=== PATIENT | male | born 1945 | race Caucasian/White ===

== ENCOUNTER → 2016-12-18 | Outpatient (CLI) | payer OTHER, BC ==
[~2016-12-18] MED LIST: ASPI81TA28 PO; C PAP; CMD5 PO; ENOX60IN SQ.; MULT-506 PO; OPTIRAY 320 IV PRN; PRT40 PO; SIMV40TA2 PO
--- NOTE | 2016-12-18 09:59 | DIAGNOSTIC IMAGING REPORT ---
CT OF THE CHEST WITH IV CONTRAST CLINICAL HISTORY: Adenopathy COMPARISON STUDY: CT scan dated 02/16/2014 TECHNIQUE: Following the IV administration of 93 mL of Optiray-320, CT of the thorax was performed from the thoracic inlet to the lung bases. Images are reviewed in the axial, sagittal, and coronal planes. IV contrast was administered without complication. A dose lowering technique was utilized adhering to the principles of ALARA. CT DOSE: 570.06 mGy.cm FINDINGS: Thyroid: Imaged portions of the thyroid gland are normal in appearance. Thoracic aorta: The thoracic aorta is normal in course and caliber, noting standard 3-vessel arch anatomy. No aneurysm or dissection is seen. Pulmonary vasculature: The pulmonary trunk is normal in caliber. There are no central filling defects identified to suggest pulmonary embolus. Note that this examination was not protocoled for the evaluation of pulmonary emboli. HEART: The heart is normal in size and configuration, without pericardial effusion. Lungs and pleural spaces: There are no pleural effusions. There is no focal pulmonary consolidation. There are mild dependent atelectatic changes. There is a 6 mm pleural-based solid right middle lobe pulmonary nodule as visualized in image #[id number]. This measured 5 mm in February 2014. There is a calcified granuloma within the right lung apex, and right lower lobe. There is a solid 4 mm pleural-based right lower lobe pulmonary nodule as visualized on image #194/302. This measures 3 mm in February 2014. There is a solid 7 mm pleural-based left lower lobe pulmonary nodule as visualized in image #175/302. This measures 6 mm in February 2014. There is a 6 mm solid pleural-based left lower lobe pulmonary nodule as visualized in image #[id number]/302. This nodule measured 4 mm in February 2014. Mediastinum: There are calcified subcarinal lymph nodes, likely postinflammatory. Kriss: There are calcified right hilar lymph nodes, likely postinflammatory Axilla: There is no evidence of pathologic axillary lymphadenopathy Upper abdomen: There is an 11 mm upper pole left renal hypodensity. Although slightly exceeding water attenuation, this statistically represents a cyst. Skeletal structures: There are no lytic or blastic osseous lesions. IMPRESSION: 1. Calcified right lung granulomas 2. Calcified mediastinal and hilar lymph nodes, most consistent with prior granulomatous infectious disease 3. Multiple bilateral low suspicion subcentimeter pulmonary nodules, demonstrating only minimal interval growth when compared the prior February 2014 study. The very slow growth strongly favors a benign etiology Electronically signed by: Veto Amaral M.D. 12/18/2016 9:58 AM Dictated Date/Time: 12/18/2016 9:43 AM
== END | disposition home or self-care (01) ==
LOC: C.CTS 09:15
PROVIDERS: ATTEND Internal Medicine
DX: I89.8 Other specified noninfective disorders of lymphatic vessels and lymph nodes (principal)

== ENCOUNTER 2017-03-25 13:42 | Inpatient (IN) | payer OTHER, BC ==
[~2017-03-25] VITALS: Ht 172.7 cm; Wt 81.0 kg
[~2017-03-25 13:42] MED LIST changes: -OPTIRAY 320 IV PRN
[2017-03-25] MEDS ORDERED: DILTIAZEM BOLUS / DRIP IV STA ×2 (14:11→15:51)
[2017-03-25] MEDS ORDERED: SODIUM CHLORIDE 0.9% 1000ML 500 ML IV STA (14:11)
--- NOTE | 2017-03-25 14:21 | EMERGENCY ROOM VISIT NOTE ---
History Report prepared by Gian: Payam Garcia Under the Supervision of: Dr. Tyshawn Power M.D. First contact with patient: 14:09 Chief Complaint: CARDIAC ASSESSMENT Stated Complaint: A FIB DR REFERRED Nursing Triage Summary: Fatigue and Dyspnea since before . Seen by PCP, new onset of A-fib with RVR. denies chest pain. pt reports lightheadedness. hx of back injury and Prednisone use. Hx of PE History of Present Illness The patient is a 71 year old male who presents to the Emergency Room with complaints of persistent fatigue and shortness of breath for the past three weeks. He states that he went to his PCP prior to arrival, and he had a new onset A-fib, and he states that he has no history of A-fib or A-flutter, and he did not even notice his heart beating fast. He denies any chest pain, cough, congestion, other cold symptoms, and any history of thyroid problems. The patient has a history of a PE in 2013, and he is not currently on any blood thinners. He notes that he has been eating and drinking normally recently. Source of History: patient Onset: three weeks ago Position: other (global) Quality: other (shortness of breath and fatigued) Timing: other (persistent) Associated Symptoms: No cough, No chest pain Review of Systems See HPI for pertinent positives & negatives. A total of 10 systems reviewed and were otherwise negative. Past Medical & Surgical Medical Problems: (1) Factor V Leiden mutation (2) HLD (hyperlipidemia) (3) HTN (hypertension) (4) Hx of pulmonary embolus (5) MTHFR mutation Family History Cancer Diabetes mellitus Social History Smoking Status: Never Smoker Alcohol Use: occasionally Marital Status: single Housing Status: lives with family Occupation Status: unemployed Current/Historical Medications Scheduled Amlodipine (Norvasc), 5 MG PO DAILY Aspirin (Aspirin Ec), 81 MG PO HS Atorvastatin (Lipitor), 20 MG PO DAILY Ibuprofen (Advil), 400 MG PO Q6H Losartan Potassium (Cozaar), 100 MG PO DAILY Allergies Coded Allergies: No Known Allergies (Unverified , 03/25/17) Physical Exam Vital Signs Date Time Temp Pulse Resp B/P (MAP) Pulse Ox O2 Delivery O2 Flow Rate FiO2 03/25/17 15:42 92 26 94 03/25/17 15:31 132/81 03/25/17 15:21 112/64 03/25/17 15:21 106 18 112/64 96 Room Air 03/25/17 15:12 88 19 92 03/25/17 15:05 118 18 104/72 96 Room Air 03/25/17 15:04 104/72 03/25/17 14:42 98 10 94 03/25/17 14:20 162 03/25/17 13:55 96 Room Air 03/25/17 13:51 36.4 102 18 139/80 96 Room Air Physical Exam GENERAL: Patient is in no acute distress. HEENT: No acute trauma, normocephalic atraumatic, mucous membranes moist, no nasal congestion, no scleral icterus. NECK: No stridor, no adenopathy, no meningismus, trachea is midline. LUNGS: Clear to auscultation bilaterally, no wheeze, no rhonchi, breath sounds equal. HEART: Irregular with a mild tachycardia. No murmurs. ABDOMEN: Soft, nontender, bowel sounds positive, no hernias, no peritonitis. EXTREMITIES: No cyanosis or edema, full range of motion of all the joints without pain or difficulty, no signs for acute trauma. NEUROLOGIC: Oriented x 3, no acute motor or sensory deficits, no focal weakness. SKIN: No rash, no jaundice, no diaphoresis. Medical Decision & Procedures ER Provider Diagnostic Interpretation: Radiology results as stated below per my review and radiologist interpretation: CHEST ONE VIEW PORTABLE HISTORY: EVALUATE ALTERED MENTAL STATUS/WEAKNESS COMPARISON: Chest 02/16/2014. FINDINGS: The heart is normal in size. No pleural effusions. No pneumothorax. No evidence for pulmonary edema. The right lung is essentially clear. There is asymmetric interstitial thickening at the left lung base. No new focal lung consolidations. IMPRESSION: Nonspecific interstitial thickening at the left lung base. This could be chronic or due to an atypical pneumonitis. Clinical correlation recommended. Electronically signed by: Ender Martinez M.D. 03/25/2017 2:33 PM Dictated Date/Time: 03/25/2017 2:30 PM Laboratory Results 03/25/17 14:05 Red Blood Count 4.93, Mean Corpuscular Volume 89.2, Mean Corpuscular Hemoglobin 30.8, Mean Corpuscular Hemoglobin Concent 34.5, Mean Platelet Volume 9.4, Neutrophils (%) (Auto) 55.6, Lymphocytes (%) (Auto) 22.6, Monocytes (%) (Auto) 16.0, Eosinophils (%) (Auto) 4.7, Basophils (%) (Auto) 0.8, Neutrophils # (Auto ) 3.70, Lymphocytes # (Auto) 1.50, Monocytes # (Auto) 1.06, Eosinophils # (Auto ) 0.31, Basophils # (Auto) 0.05 03/25/17 14:05 Test 03/25/17 14:05 White Blood Count 6.64 K/uL (4.8-10.8) Red Blood Count 4.93 M/uL (4.7-6.1) Hemoglobin 15.2 g/dL (14.0-18.0) Hematocrit 44.0 % (42-52) Mean Corpuscular Volume 89.2 fL (80-100) Mean Corpuscular Hemoglobin 30.8 pg (25-34) Mean Corpuscular Hemoglobin Concent 34.5 g/dl (32-36) Platelet Count 230 K/uL (130-400) Mean Platelet Volume 9.4 fL (7.4-10.4) Neutrophils (%) (Auto) 55.6 % Lymphocytes (%) (Auto) 22.6 % Monocytes (%) (Auto) 16.0 % Eosinophils (%) (Auto) 4.7 % Basophils (%) (Auto) 0.8 % Neutrophils # (Auto) 3.70 K/uL (1.4-6.5) Lymphocytes # (Auto) 1.50 K/uL (1.2-3.4) Monocytes # (Auto) 1.06 K/uL (0.11-0.59) Eosinophils # (Auto) 0.31 K/uL (0-0.5) Basophils # (Auto) 0.05 K/uL (0-0.2) RDW Standard Deviation 45.6 fL (36.4-46.3) RDW Coefficient of Variation 13.9 % (11.5-14.5) Immature Granulocyte % (Auto) 0.3 % Immature Granulocyte # (Auto) 0.02 K/uL (0.00-0.02) Prothrombin Time 9.9 SECONDS (9.0-12.0) Prothromb Time International Ratio 0.9 (0.9-1.1) Activated Partial Thromboplast Time 26.2 SECONDS (21.0-31.0) Partial Thromboplastin Ratio 1.0 Anion Gap 9.0 mmol/L (3-11) Est Creatinine Clear Calc Drug Dose 70.9 ml/min Estimated GFR () 85.5 Estimated GFR (Non- 73.8 BUN/Creatinine Ratio 18.2 (10-20) Calcium Level 9.6 mg/dl (8.5-10.1) Total Bilirubin 0.8 mg/dl (0.2-1) Aspartate Amino Transf (AST/SGOT) 27 U/L (15-37) Alanine Aminotransferase (ALT/SGPT) 51 U/L (12-78) Alkaline Phosphatase 79 U/L (45-117) Total Creatine Kinase 67 U/L (39-308) Creatine Kinase MB 0.6 ng/ml (0.5-3.6) Creatine Kinase MB Ratio 0.9 (0-3.0) Troponin I < 0.015 ng/ml (0-0.045) Total Protein 8.3 gm/dl (6.4-8.2) Albumin 3.7 gm/dl (3.4-5.0) Globulin 4.6 gm/dl (2.5-4.0) Albumin/Globulin Ratio 0.8 (0.9-2) Thyroid Stimulating Hormone (TSH) 1.940 uIu/ml (0.300-4.500) Laboratory results reviewed by me. Medications Administered Medications (Trade) Dose Ordered Sig/Hortensia Route Start Time Stop Time Status Last Admin Dose Admin Sodium Chloride 500 ml @ 999 mls/hr Q31M STAT IV 03/25/17 14:11 03/25/17 14:41 DC 03/25/17 15:09 999 MLS/HR Diltiazem HCl (Cardizem Bolus From Bag) 10 mg NOW ONCE IV 03/25/17 14:30 03/25/17 14:31 DC 03/25/17 15:10 10 MG Diltiazem HCl 125 mg/Dextrose 125 ml @ 0 mls/hr Q0M PRN IV 03/25/17 14:30 04/24/17 14:29 03/25/17 17:32 5 MLS/HR ECG Indication: SOB/dyspnea Rate (beats per minute): 126 Rhythm: atrial fibrillation (Rapid) Findings: no acute ischemic change, no ectopy Change: EKG has been interpreted by me. ED Course 1409: The patient was evaluated in room C1. A complete history and physical exam was performed. 1411: Diltiazem HCl IV, Sodium Chloride 500 ml @ 999 mls/hr IV 1430: Diltiazem HCl 125mg/ Dextrose IV, Diltiazem HCl 10mg IV 1502: Upon reexamination the patient is resting comfortably. I discussed results and treatment plan with the patient. He verbalizes agreement and understanding. He will be evaluated for further management. 1506: Discussed the patient's case Saturnino Hackett PA-C. The patient will be evaluated for further management. Medical Decision Differential diagnoses considered include A-fib or A-flutter, electrolyte imbalance, thyroid disorder, PE, pneumonia, and NV. There is no leukocytosis or concerning anemia. No significant electrolyte abnormality, kidney failure or hepatitis. No coagulopathy. The patient appears to be in a euthyroid state. Chest film does not show pneumonia, CHF or pneumothorax. EKG shows a rapid A. fib, no acute ischemia. Cardiac enzyme testing 1 is not consistent with acute cardiac injury. The patient presents in rapid A. fib. He may have been in this rhythm for weeks. He did not appear toxic. The patient was given a bolus of diltiazem and placed on a diltiazem drip. This is going to be used to control the rapid rate. Patient did receive an IV saline bolus. Admission/observation is warranted given our findings. I spoke to the patient and case management. The on-call hospitalist was consulted. Medication Reconcilliation Current Medication List: was personally reviewed by vt Blood Pressure Screening Patient's blood pressure: Elevated blood pressure Monitored by the hospitalist Consults Time Called: 1503 Consulting Physician: Saturnino Hackett PA-C Returned Call: 1506 Discussed the patient's case with Saturnino Hackett PA-C. The patient will be evaluated for further management. Impression Primary Impression: Rapid atrial fibrillation Critical Care I have personally spent greater than 35 minutes of critical care time in the direct management of this patient. This includes bedside care, interpretation of diagnostic studies, and testing, discussion with consultants, patient, and family members, and other required patient management activities. This 35 minutes is in excess of all separately billable procedures. Scribe Attestation The scribe's documentation has been prepared under my direction and personally reviewed by me in its entirety. I confirm that the note above accurately reflects all work, treatment, procedures, and medical decision making performed by me. Departure Information Dispostion Being Evaluated By Hospitalist Jay Jay Ga MD (PCP) Patient Instructions My [facility]
[2017-03-25] MEDS ORDERED: DILTIAZEM BOLUS FROM BAG IV ONE (14:30)
--- NOTE | 2017-03-25 14:34 | DIAGNOSTIC IMAGING REPORT ---
CHEST ONE VIEW PORTABLE HISTORY: EVALUATE ALTERED MENTAL STATUS/WEAKNESS COMPARISON: Chest 02/16/2014. FINDINGS: The heart is normal in size. No pleural effusions. No pneumothorax. No evidence for pulmonary edema. The right lung is essentially clear. There is asymmetric interstitial thickening at the left lung base. No new focal lung consolidations. IMPRESSION: Nonspecific interstitial thickening at the left lung base. This could be chronic or due to an atypical pneumonitis. Clinical correlation recommended. Electronically signed by: Ender Martinez M.D. 03/25/2017 2:33 PM Dictated Date/Time: 03/25/2017 2:30 PM
[2017-03-25 14:45] LABS: BASO % 0.8 %; BASO ABS # 0.05 K/uL (0-0.2); EOS % 4.7 %; EOS ABS # 0.31 K/uL (0-0.5); HEMOGLOBIN 15.2 g/dL (14.0-18.0); IG# 0.02 K/uL (0.00-0.02); LYMPH % 22.6 %; MEAN CELL VOLUME 89.2 fL (80-100); MEAN CORPUSCULAR HEMOGLOBIN 30.8 pg (25-34); MEAN CORPUSCULAR HGB CONC 34.5 g/dl (32-36); MEAN PLATELET VOLUME 9.4 fL (7.4-10.4); MONO ABS # 1.06 K/uL (0.11-0.59); NEUT % 55.6 %; PLATELET COUNT 230 K/uL (130-400); RED CELL DISTRIBUTION WIDTH CV 13.9 % (11.5-14.5); RED CELL DISTRIBUTION WIDTH SD 45.6 fL (36.4-46.3); WHITE BLOOD COUNT 6.64 K/uL (4.8-10.8)
[2017-03-25 14:46] LABS: INR 0.9 (0.9-1.1); PTT PATIENT 26.2 SECONDS (21.0-31.0)
[2017-03-25 14:49] LABS: ALBUMIN 3.7 gm/dl (3.4-5.0); ALT/SGPT 51 U/L (12-78); BLOOD UREA NITROGEN 19 mg/dl (7-18); CALCIUM 9.6 mg/dl (8.5-10.1); CARBON DIOXIDE 24 mmol/L (21-32); CREATININE 1.03 mg/dl (0.60-1.40); GLUCOSE 98 mg/dl (70-99); POTASSIUM 4.1 mmol/L (3.5-5.1); SODIUM 137 mmol/L (136-145)
[2017-03-25 15:00] LABS: ALKALINE PHOSPHATASE 79 U/L (45-117); AST/SGOT 27 U/L (15-37); CKMB 0.6 ng/ml (0.5-3.6); TOTAL PROTEIN 8.3 gm/dl (6.4-8.2)
[2017-03-25] MEDS: DILTIAZEM HCL INJ 125 MG in DEXTROSE 5% 100ML IV PRN ×2 (15:17→17:32)
[2017-03-25] MEDS ORDERED: IBUP-1050 PO (15:54)
[2017-03-25] MEDS ORDERED: ATOR-22 PO (15:54)
[2017-03-25] MEDS ORDERED: LOSA1TAB38 PO (15:54)
[2017-03-25] MEDS ORDERED: AMLO-110 PO (15:54)
[2017-03-25] MEDS ORDERED: ONDANSETRON INJ 2 MG/ML 2 ML VIAL IV PRN (16:00)
[2017-03-25] MEDS ORDERED: OPTIRAY 320 IV PRN (16:00)
[2017-03-25 16:02] VITALS: O2SAT 96; Ht 172.7 cm; Wt 81.0 kg
--- NOTE | 2017-03-25 16:19 | History and Physical ---
History & Physical Date & Time of Service: Mar 25, 2017 at 16:18 Chief Complaint: A Fib Dr Referred Primary Care Physician: Jay Jay Youngblood MD History of Present Illness Source: patient, clinic records, hospital records This is a 71yo M with a PMH of HTN, HLD, WILLOW (on cpap), h/o PE in 2013, Factor V Leiden mutation and diastolic dysfunction who presents with new onset A Fib from PCP's office. Patient has been feeling fatigued and dyspneic with exertion for the past 3 weeks. States that he is SOB with household activities like vacuuming and climbing a flight of stairs. Was found to be in A Fib at Dr. Youngblood's office and was sent to ED for further evaluation. Has a history of a PE in 2013 and was found to have an underlying Factor V leiden mutation. Was on warfarin at that time but is not on any anticoagulation now. Endorses a normal appetite. No recent infection. Drinks 1-2 glasses of wine each week. No history of thyroid problems. Denies fever, chills, lightheadedness, palpitations , CP, abd pain, nausea, vomiting, LE swelling. Past Medical/Surgical History Medical Problems: (1) Factor V Leiden mutation Status: Chronic (2) HLD (hyperlipidemia) Status: Chronic (3) HTN (hypertension) Status: Chronic (4) Hx of pulmonary embolus Permanent Comment: 2013 Status: Chronic (5) MTHFR mutation Status: Chronic Family History Cancer Diabetes mellitus Social History Smoking Status: Never Smoker Alcohol Use: socially (1-2 glasses of wine weekly) Housing status: lives with significant other Occupational Status: unemployed Allergies Coded Allergies: No Known Allergies (Unverified , 03/25/17) Home Medications Scheduled Amlodipine (Norvasc), 5 MG PO DAILY Aspirin (Aspirin Ec), 81 MG PO HS Atorvastatin (Lipitor), 20 MG PO DAILY Ibuprofen (Advil), 400 MG PO Q6H Losartan Potassium (Cozaar), 100 MG PO DAILY Review of Systems Ten systems reviewed and negative except as noted in the HPI. Physical Exam Vital Signs Date Time Temp Pulse Resp B/P (MAP) Pulse Ox O2 Delivery O2 Flow Rate FiO2 03/25/17 16:12 95 25 96 03/25/17 16:02 96 Room Air 03/25/17 16:00 127/82 03/25/17 15:42 92 26 94 03/25/17 15:31 132/81 03/25/17 15:21 112/64 03/25/17 15:21 106 18 112/64 96 Room Air 03/25/17 15:12 88 19 92 03/25/17 15:05 118 18 104/72 96 Room Air 03/25/17 15:04 104/72 03/25/17 14:42 98 10 94 03/25/17 14:20 162 03/25/17 13:55 96 Room Air 03/25/17 13:51 36.4 102 18 139/80 96 Room Air General Appearance: WD/WN, no apparent distress Head: normocephalic, atraumatic Eyes: normal inspection, PERRL, sclerae normal ENT: normal ENT inspection, hearing grossly normal, pharynx normal (moist mucous membranes) Neck: supple, thyroid normal, trachea midline Respiratory/Chest: chest non-tender, lungs clear, normal breath sounds, no respiratory distress, no accessory muscle use Cardiovascular: no murmur, normal peripheral pulses, + irregularly irregular Abdomen/GI: non tender, soft, no organomegaly Back: normal inspection Extremities/Musculoskelatal: normal inspection, no calf tenderness, no pedal edema Neurologic/Psych: no motor/sensory deficits, alert, normal mood/affect, oriented x 3 Skin: normal color, warm/dry Diagnostics Laboratory Results Results Past 24 Hours Test 03/25/17 14:05 Range/Units White Blood Count 6.64 4.8-10.8 K/uL Red Blood Count 4.93 4.7-6.1 M/uL Hemoglobin 15.2 14.0-18.0 g/dL Hematocrit 44.0 42-52 % Mean Corpuscular Volume 89.2 80-100 fL Mean Corpuscular Hemoglobin 30.8 25-34 pg Mean Corpuscular Hemoglobin Concent 34.5 32-36 g/dl Platelet Count 230 130-400 K/uL Mean Platelet Volume 9.4 7.4-10.4 fL Neutrophils (%) (Auto) 55.6 % Lymphocytes (%) (Auto) 22.6 % Monocytes (%) (Auto) 16.0 % Eosinophils (%) (Auto) 4.7 % Basophils (%) (Auto) 0.8 % Neutrophils # (Auto) 3.70 1.4-6.5 K/uL Lymphocytes # (Auto) 1.50 1.2-3.4 K/uL Monocytes # (Auto) 1.06 0.11-0.59 K/uL Eosinophils # (Auto) 0.31 0-0.5 K/uL Basophils # (Auto) 0.05 0-0.2 K/uL RDW Standard Deviation 45.6 36.4-46.3 fL RDW Coefficient of Variation 13.9 11.5-14.5 % Immature Granulocyte % (Auto) 0.3 % Immature Granulocyte # (Auto) 0.02 0.00-0.02 K/uL Prothrombin Time 9.9 9.0-12.0 SECONDS Prothromb Time International Ratio 0.9 0.9-1.1 Activated Partial Thromboplast Time 26.2 21.0-31.0 SECONDS Partial Thromboplastin Ratio 1.0 Sodium Level 137 136-145 mmol/L Potassium Level 4.1 3.5-5.1 mmol/L Chloride Level 104 98-107 mmol/L Carbon Dioxide Level 24 21-32 mmol/L Anion Gap 9.0 3-11 mmol/L Blood Urea Nitrogen 19 7-18 mg/dl Creatinine 1.03 0.60-1.40 mg/dl Est Creatinine Clear Calc Drug Dose 70.9 ml/min Estimated GFR () 85.5 Estimated GFR (Non- 73.8 BUN/Creatinine Ratio 18.2 10-20 Random Glucose 98 70-99 mg/dl Calcium Level 9.6 8.5-10.1 mg/dl Total Bilirubin 0.8 0.2-1 mg/dl Aspartate Amino Transf (AST/SGOT) 27 15-37 U/L Alanine Aminotransferase (ALT/SGPT) 51 12-78 U/L Alkaline Phosphatase 79 45-117 U/L Total Creatine Kinase 67 39-308 U/L Creatine Kinase MB 0.6 0.5-3.6 ng/ml Creatine Kinase MB Ratio 0.9 0-3.0 Troponin I < 0.015 0-0.045 ng/ml Total Protein 8.3 6.4-8.2 gm/dl Albumin 3.7 3.4-5.0 gm/dl Globulin 4.6 2.5-4.0 gm/dl Albumin/Globulin Ratio 0.8 0.9-2 Thyroid Stimulating Hormone (TSH) 1.940 0.300-4.500 uIu/ml Diagnostic Radiology Chest/thorax CTA: IMPRESSION: 1. No evidence for pulmonary embolus. 2. Scattered subcentimeter pulmonary nodules are again noted and not significantly changed. Dominant nodule within the left lower lobe measures 8 mm. No new pulmonary nodules. 3. Groundglass densities within the right upper lobe and within the periphery of the lung bases. This could be due to air trapping, dependent change, or an atypical pneumonitis. CXR: IMPRESSION: Nonspecific interstitial thickening at the left lung base. This could be chronic or due to an atypical pneumonitis. Clinical correlation recommended. EKG A Fib with RVR at 126 bpm Impression Assessment and Plan This is a 71yo M with a PMH of HTN, HLD, WILLOW (on cpap), h/o PE in 2013, Factor V Leiden mutation and diastolic dysfunction who presents with new onset A Fib from PCP's office. New onset A Fib with RVR: -Unclear etiology -TSH, electrolytes wnl -Chest/thorax CTA without evidence of PE. Possible pneumonitis -HR of 162 on admission, down to 110s on diltiazem drip -Plan to continue drip until HR ~ 90 -IV heparin initiated -Cardio consulted -Telemetry HTN: -Normotensive on losartan hold Amlodipine, while on diltiazem drip HLD: -Cont statin WILLOW: -Will use own CPAP DVT Ppx: IV heparin Code status: FULL PCP: Rylie Dispo: Admitted to telemetry. Plan to return home once medically stable. Patient seen in collaboration with Dr. Moon. Please see addendum. Agree with above H and p. Briefly 71Y M presents feeling of severe fatigue for stime now. Having sob with exertion. No chest pain or dizziness or headaches. No fevers. No cough. Went to PCP and was found in rapid afib and was sent to ER. Rates are better controlled with Cardizem drip. 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 Y/N: Yes Risk Level: High Given or contraindicated: Unfractionated heparin SQ
[2017-03-25] MEDS ORDERED: HEPARIN 25000 UNIT/500 ML D5W ONE (16:28)
[2017-03-25 17:20] VITALS: O2SAT 96
--- NOTE | 2017-03-25 17:36 | DIAGNOSTIC IMAGING REPORT ---
CHEST CTA for PULMONARY ARTERIES CT DOSE: 338.43 mGy.cm HISTORY: Atypical chest pain. TECHNIQUE: Multiaxial CT images of the chest were performed following the intravenous administration of contrast to evaluate the pulmonary arteries. Maximal intensity projection images were also obtained. A dose lowering technique was utilized adhering to the principles of ALARA. COMPARISON STUDY: Chest CT 12/18/2016. Chest CTA 02/16/2014. FINDINGS: Normal caliber thoracic aorta with no evidence for dissection. No pleural or pericardial effusions. The heart is enlarged. Suboptimal evaluation of the bilateral lower lobe subsegmental pulmonary arteries due to the motion artifact. Otherwise, the remaining pulmonary arteries show no filling defects to suggest pulmonary embolus. The central airways are patent. No pneumothorax. A few scattered subcentimeter pulmonary nodules are stable in size. Dominant nodule within the left lower lobe on image 131 measures 8 mm. No new pulmonary nodules are identified. Patchy groundglass densities seen within the right upper lobe and periphery of the lung bases. The visualized liver, spleen, and adrenal glands are unremarkable. Small hiatus hernia. No mediastinal or hilar lymphadenopathy. Calcified right hilar and subcarinal lymph nodes. IMPRESSION: 1. No evidence for pulmonary embolus. 2. Scattered subcentimeter pulmonary nodules are again noted and not significantly changed. Dominant nodule within the left lower lobe measures 8 mm. No new pulmonary nodules. 3. Groundglass densities within the right upper lobe and within the periphery of the lung bases. This could be due to air trapping, dependent change, or an atypical pneumonitis. Electronically signed by: Ender Martinez M.D. 03/25/2017 5:35 PM Dictated Date/Time: 03/25/2017 5:24 PM
[2017-03-25 17:43] VITALS: BP 126/82; PULSE 84; TEMP 36.5
[2017-03-25] MEDS ORDERED: HEPARIN 25,000 UNIT/500ML D5W 500 ML IV PRN (18:00)
[2017-03-25 18:15] VITALS: PULSE 110
[2017-03-25] MEDS ORDERED: METOPROLOL TARTRATE 25 MG TAB PO ONE (18:59)
[2017-03-25 19:47] VITALS: BP 133/78; PULSE 86; TEMP 36.6; O2SAT 92
[2017-03-25] MEDS ORDERED: ASPIRIN 81 MG ECTAB PO SCH (21:00)
[2017-03-25] MEDS ORDERED: [UNRECOGNIZED DRUG - REMARK] ONE (23:00)
[2017-03-25 23:22] LABS: PTT PATIENT 45.4 SECONDS (21.0-31.0)
[2017-03-25 23:29] VITALS: BP 130/72; PULSE 77; TEMP 37.3; O2SAT 96
[2017-03-25] MEDS: ACETAMINOPHEN 325 MG TAB PO PRN (23:35)
[2017-03-25] MEDS: METOPROLOL TARTRATE 25 MG TAB PO SCH (23:36)
[2017-03-26] MEDS ORDERED: HEPARIN IV BOLUS 3,000 UNIT in SYRINGE 0 ML IV ONE (00:30)
[2017-03-26 04:00] VITALS: BP 107/65; PULSE 71; TEMP 36.7; O2SAT 96
[2017-03-26] MEDS: METOPROLOL TARTRATE 25 MG TAB PO SCH ×2 (05:53→11:46)
[2017-03-26 06:40] LABS: HEMATOCRIT 38.9 % (42-52); HEMOGLOBIN 13.3 g/dL (14.0-18.0); MEAN CORPUSCULAR HEMOGLOBIN 30.4 pg (25-34); MEAN CORPUSCULAR HGB CONC 34.2 g/dl (32-36); MEAN PLATELET VOLUME 8.8 fL (7.4-10.4); PLATELET COUNT 180 K/uL (130-400); RED CELL DISTRIBUTION WIDTH CV 13.8 % (11.5-14.5); RED CELL DISTRIBUTION WIDTH SD 45.2 fL (36.4-46.3); WHITE BLOOD COUNT 5.74 K/uL (4.8-10.8)
[2017-03-26 07:09] LABS: PTT PATIENT 113.9 SECONDS (21.0-31.0)
[2017-03-26 07:11] LABS: CALCIUM 8.5 mg/dl (8.5-10.1); CREATININE 1.06 mg/dl (0.60-1.40); POTASSIUM 4.3 mmol/L (3.5-5.1)
[2017-03-26 07:30] VITALS: BP 124/74; PULSE 71; TEMP 37.3; O2SAT 93
--- NOTE | 2017-03-26 07:58 | CARDIOLOGY CONSULTATION ---
DATE OF CONSULTATION: 03/25/2017 PRIMARY CARE PHYSICIAN: Dr. Youngblood. INDICATIONS: Atrial fibrillation/atrial flutter with rapid ventricular response. HISTORY OF PRESENT ILLNESS: The patient is a 71-year-old male without prior history of atrial arrhythmias. His underlying medical history is notable for hypertension, obstructive sleep apnea, hyperlipidemia, on therapy, past history of pulmonary embolus in 2013, the patient having notable heterozygous factor V Leiden factor. The patient presents now noting he had been doing well but suffered a mechanical fall in February, then began experiencing severe hip pain and discomfort. He was treated with analgesia and corticosteroids. Notes now over the last 3 weeks generally progressive symptoms of weakness and fatigue. Notes no sense of tachypalpitations but is currently unaware of palpitations during elevated heart rates. Notes no chest pains. Notes no orthopnea. Notes no worsening peripheral edema. Notes no headache or visual changes. Has been using CPAP faithfully. Notes no recent fevers, chills or infections. Notes no bleeding difficulties. Notes no melena, hematochezia, dysuria or hematuria. The patient was treated for pulmonary embolus in 2013 for 6 months with anticoagulation with warfarin. Episode was not specifically provoked but noted multiple car trips in the preceding months of over 6 hours' duration, back and forth between [place] and [place]. REVIEW OF SYSTEMS: Otherwise negative. ALLERGIES: None. MEDICATIONS: Prior to hospitalization were as noted recent prednisone and Flexeril use for hip pain with 2 corticosteroid tapers, atorvastatin 20 mg p.o. daily, amlodipine 5 mg p.o. daily, losartan 100 mg p.o. daily, aspirin 81 mg per day, multivitamin per day, ibuprofen p.r.n. PAST SURGICAL HISTORY: None. FAMILY HISTORY: Not specifically notable for atrial fibrillation or ischemic heart disease. SOCIAL HISTORY: The patient currently resides in [place]. 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 He is a nonsmoker, rare alcohol user. Previously resided in [place], [place]. PHYSICAL EXAMINATION: VITAL SIGNS: Heart rate is 110. Blood pressure is 126/82. HEENT: Normocephalic, atraumatic. Nares without discharge. Throat is clear. NECK: Supple without thyromegaly, lymphadenopathy, JVD or bruit. There is no jugular venous distention. There are no carotid bruits. LUNGS: Notable for mildly diminished breath sounds but are predominantly clear to auscultation. CARDIOVASCULAR: Irregularly irregular. Rate is 95-110 on IV diltiazem. There is no audible murmur, gallop or rub. PMI is nondisplaced. ABDOMEN: Soft, nontender. There is no palpable hepatosplenomegaly. There is no hepatojugular reflux. EXTREMITIES: Without cyanosis or clubbing. There is no peripheral edema. There is no palpable cord or Homans sign. NEUROLOGIC: The patient is alert, oriented, answering questions appropriately. REVIEW OF DATA: Echocardiogram last performed in 2013 demonstrated normal left ventricular size and function with mild left ventricular hypertrophy. No valvular disease. LABORATORY STUDIES: On presentation reveal white cell count of 6.6, hemoglobin of 15.2, hematocrit of 44.0. Sodium 137, potassium 4.1, chloride 104, bicarbonate 24, BUN 19, creatinine 1.0. GFR was normal. AST and ALT are normal. TSH is 1.9. Troponin is less than 0.015. EKG reveals atrial fibrillation with elevated ventricular response rate with minor nonspecific ST flattening. IMPRESSION: A 71-year-old male without prior history of atrial arrhythmias, underlying history of obstructive sleep apnea, hypertension, hyperlipidemia, past possibly provoked pulmonary emboli, who presented today with symptoms of several weeks' duration of fatigue beginning after a fall and injury with hip pain and corticosteroid usage. The patient was not aware of tachypalpitations on initial presentation but was found on EKG to have atrial fibrillation. Given history of past pulmonary emboli, is referred for inpatient management and evaluation. CT scan of the chest today demonstrates no evidence of pulmonary emboli. Heart rates are slowing with IV diltiazem. RECOMMENDATIONS: Continue anticoagulation with heparin given duration of greater than 72 hours, will likely transition to oral anticoagulant prior to attempts to return to sinus rhythm given good tolerance other than sense of mild fatigue. Atrial fibrillation will be slowed, we will add oral metoprolol initially at 25 q. 6 h. with discontinuing IV diltiazem at second dose of metoprolol. Echocardiogram has been ordered and will be reviewed in a.m. The patient would likely be a good candidate for target-oriented anticoagulant though will need to review indications in the setting of quasi-positive hypercoagulable studies with heterozygous factor V Leiden factor. Discussed all findings in detail with the patient.
[2017-03-26] MEDS: ACETAMINOPHEN 325 MG TAB PO PRN (08:00)
[2017-03-26] MEDS ORDERED: ATORVASTATIN 20 MG TAB PO SCH (09:00)
[2017-03-26] MEDS ORDERED: LOSARTAN POTASSIUM 50 MG TAB PO SCH (09:00)
[2017-03-26 11:25] VITALS: BP 139/77; PULSE 78; TEMP 37.1; O2SAT 95
--- NOTE | 2017-03-26 12:13 | Cardiology Follow-Up ---
Subjective Subjective Date of Service: Mar 26, 2017. Pt evaluation today including: conversation w/ patient, conversation w/ family , physical exam, chart review, lab review, review of studies, review of inpatient medication list Additional Details: Pt seen and examined, with at bedside. States that he feels fine. Denies cp , sob, palpitations, lightheadedness or dizziness. Tele reviewed: normal sinus rhythm after spontaneously converting at 1845 Review of Systems Respiratory: No see HPI, No cough, No sputum, No wheezing, No shortness of breath, No dyspnea on exertion, No dyspnea at rest, No hemoptysis, No problem reported Cardiac: No see HPI, No chest pain, No orthopnea, No PND, No edema, No claudication, No palpitations, No problem reported Objective Vital Signs Last Vital Signs Documentation Date Time Temp Pulse Resp B/P (MAP) Pulse Ox O2 Delivery O2 Flow Rate FiO2 03/26/17 11:25 37.1 78 16 139/77 (97) 95 Room Air Physical Exam: General Appearance: WD/WN, no apparent distress Eyes: bilateral eyes normal inspection, bilateral eyes PERRL, bilateral eyes EOMI ENT: normal ENT inspection, hearing grossly normal, TMs normal, pharynx normal Neck: supple, no adenopathy, thyroid normal, no JVD, no carotid bruits, trachea midline Respiratory/Chest: chest non-tender, lungs clear, normal breath sounds, no respiratory distress, no accessory muscle use Cardiovascular: regular rate, rhythm, no edema, no JVD, no murmur, + gallop/S4 Abdomen: normal bowel sounds, non tender, soft, no organomegaly, no pulsatile mass Extremities: normal inspection, no pedal edema, no calf tenderness Neurologic/Psychiatric: 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 Paroxysmal atrial fibrillation spontaneously converted to sinus has remained in sinus overnight had lengthy discussion with patient and on pros/cons of anticoagulation therapy as well as pros/cons of each agent patient and his agree that he would like to go home on warfarin will then f/u with Dr. Parsons in 1 month to discuss buttermaker plan cont metoprolol at 50mg bid my office will call to arrange [facility] referral and schedule f/u with Dr. Issa stein to d/c to home from cardiac standpoint.
[2017-03-26] MEDS ORDERED: WARFARIN SOD 5 MG TAB PO ONE (12:15)
--- NOTE | 2017-03-26 12:23 | Progress Note ---
Medicine Progress Note Date & Time of Visit: Mar 26, 2017 at 12:19. (Varsha Carr, P.A.-C.) Subjective Patient seen and examined. Sitting comfortably in his chair, reading. States that he feels much better today. Denies lightheadedness, palpitations, chest pain or dyspnea on exertion. States that he is ready to go home and is open to going home on oral anticoagulation. (Varsha Carr, P.A.-C.) Objective Last 8 Hrs Date Time Temp Pulse Resp B/P (MAP) Pulse Ox O2 Delivery O2 Flow Rate FiO2 03/26/17 11:25 37.1 78 16 139/77 (97) 95 Room Air 03/26/17 08:00 Room Air 03/26/17 07:30 37.3 71 18 124/74 (91) 93 Room Air Physical Exam: General Appearance: WD/WN, no apparent distress. Sitting in chair reading. Head: normocephalic, atraumatic Eyes: normal inspection, PERRL, EOMI ENT: hearing grossly normal, pharynx normal Neck: supple, no JVD, no adenopathy Respiratory/Chest: lungs clear to auscultation. No wheezes, rales or rhonci. No respiratory distress or accessory muscle use Cardiovascular: regular rate, rhythm, no murmur, normal peripheral pulses Abdomen/GI: normal bowel sounds, soft, non-tender to palpation Extremities/Musculoskelatal: normal inspection, no calf tenderness, normal capillary refill, no pedal edema Neurologic/Psych: alert, normal mood/affect, oriented x 3 Skin: normal color, warm/dry Laboratory Results: Last 24 Hours Test 03/25/17 14:05 03/25/17 22:42 03/26/17 06:27 White Blood Count 6.64 K/uL 5.74 K/uL Red Blood Count 4.93 M/uL 4.37 M/uL Hemoglobin 15.2 g/dL 13.3 g/dL Hematocrit 44.0 % 38.9 % Mean Corpuscular Volume 89.2 fL 89.0 fL Mean Corpuscular Hemoglobin 30.8 pg 30.4 pg Mean Corpuscular Hemoglobin Concent 34.5 g/dl 34.2 g/dl Platelet Count 230 K/uL 180 K/uL Mean Platelet Volume 9.4 fL 8.8 fL Neutrophils (%) (Auto) 55.6 % Lymphocytes (%) (Auto) 22.6 % Monocytes (%) (Auto) 16.0 % Eosinophils (%) (Auto) 4.7 % Basophils (%) (Auto) 0.8 % Neutrophils # (Auto) 3.70 K/uL Lymphocytes # (Auto) 1.50 K/uL Monocytes # (Auto) 1.06 K/uL Eosinophils # (Auto) 0.31 K/uL Basophils # (Auto) 0.05 K/uL RDW Standard Deviation 45.6 fL 45.2 fL RDW Coefficient of Variation 13.9 % 13.8 % Immature Granulocyte % (Auto) 0.3 % Immature Granulocyte # (Auto) 0.02 K/uL Prothrombin Time 9.9 SECONDS 11.0 SECONDS Prothromb Time International Ratio 0.9 1.0 Activated Partial Thromboplast Time 26.2 SECONDS 45.4 SECONDS 113.9 SECONDS Partial Thromboplastin Ratio 1.0 1.7 4.4 Sodium Level 137 mmol/L 136 mmol/L Potassium Level 4.1 mmol/L 4.3 mmol/L Chloride Level 104 mmol/L 104 mmol/L Carbon Dioxide Level 24 mmol/L 27 mmol/L Anion Gap 9.0 mmol/L 5.0 mmol/L Blood Urea Nitrogen 19 mg/dl 16 mg/dl Creatinine 1.03 mg/dl 1.06 mg/dl Est Creatinine Clear Calc Drug Dose 70.9 ml/min 63.6 ml/min Estimated GFR () 85.5 82.6 Estimated GFR (Non- 73.8 71.3 BUN/Creatinine Ratio 18.2 15.5 Random Glucose 98 mg/dl 111 mg/dl Calcium Level 9.6 mg/dl 8.5 mg/dl Total Bilirubin 0.8 mg/dl Aspartate Amino Transf (AST/SGOT) 27 U/L Alanine Aminotransferase (ALT/SGPT) 51 U/L Alkaline Phosphatase 79 U/L Total Creatine Kinase 67 U/L Creatine Kinase MB 0.6 ng/ml Creatine Kinase MB Ratio 0.9 Troponin I < 0.015 ng/ml Total Protein 8.3 gm/dl Albumin 3.7 gm/dl Globulin 4.6 gm/dl Albumin/Globulin Ratio 0.8 Thyroid Stimulating Hormone (TSH) 1.940 uIu/ml (Varsha Carr ., P.A.-C.) Assessment & Plan This is a 71yo M with a PMH of HTN, HLD, WILLOW (on cpap), h/o PE in 2013, Factor V Leiden mutation and diastolic dysfunction who presents with new onset A Fib from PCP's office. A Fib with RVR: resolved -Unclear etiology -TSH, electrolytes wnl -Chest/thorax CTA without evidence of PE. Possible pneumonitis -Started on diltiazem drip, IV heparin initiated -HR spontaneously converted to NSR last evening -Cardio consulted. Transitioned to PO metoprolol 50mg Q6 -Repeat EKG this morning with NSR -Per cardio, okay to discharge: -Metoprolol 50mg BID -Initiate warfarin -Follow up with Dr. 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 Discharge planning: home Consultants: Cardio Current Inpatient Medications: Current Inpatient Medications Medications (Trade) Dose Ordered Sig/Hortensia Route Start Time Stop Time Status Last Admin Dose Admin Acetaminophen (Tylenol Tab) 650 mg Q4H PRN PO 03/25/17 16:00 04/24/17 15:59 03/26/17 08:00 650 MG Ondansetron HCl (Zofran Inj) 4 mg Q6H PRN IV 03/25/17 16:00 04/24/17 15:59 Ioversol (Optiray 320) 100 ml UD PRN IV 03/25/17 16:00 03/29/17 15:59 Aspirin (Ecotrin Tab) 81 mg HS PO 03/25/17 21:00 04/24/17 20:59 03/25/17 21:04 81 MG Atorvastatin Calcium (Lipitor Tab) 20 mg DAILY PO 03/26/17 09:00 04/25/17 08:59 03/26/17 08:01 20 MG Losartan Potassium (coZAAR TAB) 100 mg DAILY PO 03/26/17 09:00 04/25/17 08:59 Future Hold Heparin Sodium/ Dextrose 500 ml @ 26 mls/hr [id number] PRN IV 03/25/17 18:00 04/24/17 17:59 Metoprolol Tartrate (Lopressor Tab) 25 mg Q6 PO 03/26/17 00:00 04/25/17 00:00 03/26/17 11:46 25 MG Warfarin Sodium (Coumadin Tab) 5 mg DAILY@16 PO 03/27/17 16:00 04/26/17 15:59 (Varsha Carr, P.A.-C.) ADDENDUM: Saw/examined the patient in room 239. He's doing well; denies chest pain/palpitations, denies any other symptoms currently in NSR; controlled rate Plan is to discharge on metoprolol 50mg BID will continue Norvasc and Cozaar for blood pressure continue Lipitor for cholesterol CPAP nocturnally for WILLOW Recommendation made for starting Coumadin - patient states he will have a root canal done on March 30 and would like to start Coumadin after that. I let him know to follow-up with Dr. Parsons in one month. INR follow-up in one week if he start on March 31. (Natalie Tang, DO)
[2017-03-26] MEDS ORDERED: NURSING VERBAL MED ORDER ONE (12:30)
--- NOTE | 2017-03-26 12:45 | Discharge Instructions ---
Discharge Instructions Date of Service Mar 26, 2017. Admission Reason for Admission: New Onset Atrial Fibrillation Discharge Discharge Diagnosis / Problem: New Onset Atrial Fibrillation Discharge Goals Goal(s): Decrease discomfort, Improve function, Increase independence, Improve disease control Activity Recommendations Activity Limitations: resume your previous activity . Instructions / Follow-Up Instructions / Follow-Up You were hospitalized for new onset atrial fibrillation. Your heart spontaneously converted back to normal sinus rhythm last night. You were seen by a day care aide who started you on the following oral medications: -Metoprolol 50mg twice daily -Warfarin 5mg every day Your follow up appointment with Dr. Youngblood is WednesdayMarch 29 at 10: 45am. The cardiology office will arrange coag clinic referral and follow-up with Dr. Parsons. Current Hospital Diet Patient's current hospital diet: AHA Diet (Heart Healthy), Low Sodium Diet (2gm Na) Discharge Diet Recommended Diet: AHA Diet (Heart Healthy), Low Sodium Diet (2gm Na) Pending Studies Studies pending at discharge: no Medical Emergencies . Who to Call and When: Medical Emergencies: If at any time you feel your situation is an emergency, please call 911 immediately. . Non-Emergent Contact Non-Emergency issues call your: Primary Care Provider Call Non-Emergent contact if: you have any medication questions . Past History Medical & Surgical History: (1) New onset atrial fibrillation (2) HLD (hyperlipidemia) (3) Hx of pulmonary embolus (4) Factor V Leiden mutation (5) MTHFR mutation (6) HTN (hypertension) . "Provider Documentation" section prepared by Varsha Carr. . VTE Core Measure Inpt VTE Proph given/why not?: Unfractionated heparin [facility] [place] Drug Monitoring Program Search Results: patient reviewed within database
[2017-03-26] MEDS ORDERED: CMD5 PO (12:50)
[2017-03-26] MEDS ORDERED: METO-551 PO (12:50)
--- NOTE | 2017-03-26 12:53 | Discharge Summary ---
Discharge Summary Date of Service Mar 26, 2017. Discharge Summary Admission Date: Mar 25, 2017 at 15:44 Discharge Date: Mar 26, 2017 Discharge Disposition: Home Principal Diagnosis: New onset atrial fibrillation Secondary Diagnoses/Problems: Hypertension, WILLOW (on cpap), history of pulmonary embolus in 2013, Factor V Leiden mutation, diastolic dysfunction Consultations: Cardio Medication Reconciliation New Medications: Metoprolol Tartrate (Lopressor) 50 Mg Tab 50 MG PO BID for 30 Days, #60 TAB Warfarin Sod (Coumadin) 5 Mg Tab 5 MG PO DAILY@16 for 30 Days, #30 TAB Continued Medications: Amlodipine (Norvasc) 5 Mg Tab 5 MG PO DAILY, TAB Aspirin (Aspirin Ec) 81 Mg Tab 81 MG PO HS Atorvastatin (Lipitor) 20 Mg Tab 20 MG PO DAILY, TAB Ibuprofen (Advil) 200 Mg Tab 400 MG PO Q6H, TAB Losartan Potassium (Cozaar) 100 Mg Tab 100 MG PO DAILY, TAB Admission Information HPI (per Admitting provider): This is a 71yo M with a PMH of HTN, HLD, WILLOW (on cpap), h/o PE in 2013, Factor V Leiden mutation and diastolic dysfunction who presents with new onset A Fib from PCP's office. Patient has been feeling fatigued and dyspneic with exertion for the past 3 weeks. States that he is SOB with household activities like vacuuming and climbing a flight of stairs. Was found to be in A Fib at Dr. Youngblood's office and was sent to ED for further evaluation. Has a history of a PE in 2013 and was found to have an underlying Factor V leiden mutation. Was on warfarin at that time but is not on any anticoagulation now. Endorses a normal appetite. No recent infection. Drinks 1-2 glasses of wine each week. No history of thyroid problems. Denies fever, chills, lightheadedness, palpitations , CP, abd pain, nausea, vomiting, LE swelling. Physical Exam (per Admitting): General Appearance: WD/WN, no apparent distress Head: normocephalic, atraumatic Eyes: normal inspection, PERRL, sclerae normal ENT: normal ENT inspection, hearing grossly normal, pharynx normal (moist mucous membranes) Neck: supple, thyroid normal, trachea midline Respiratory/Chest: chest non-tender, lungs clear, normal breath sounds, no respiratory distress, no accessory muscle use Cardiovascular: no murmur, normal peripheral pulses, + irregularly irregular Abdomen/GI: non tender, soft, no organomegaly Back: normal inspection Extremities/Musculoskelatal: normal inspection, no calf tenderness, no pedal edema Neurologic/Psych: no motor/sensory deficits, alert, normal mood/affect, oriented x 3 Skin: normal color, warm/dry Hospital Course This is a 71yo M with a PMH of HTN, HLD, WILLOW (on cpap), h/o PE in 2013, Factor V Leiden mutation and diastolic dysfunction who presents with new onset A Fib from PCP's office. A Fib with RVR: resolved -Unclear etiology -TSH, electrolytes wnl -Chest/thorax CTA without evidence of PE. Possible pneumonitis -Started on diltiazem drip, IV heparin initiated -HR spontaneously converted to NSR last evening -Cardio consulted. Transitioned to PO metoprolol 50mg Q6 -Repeat EKG this morning with NSR -Per cardio, okay to discharge: -Metoprolol 50mg BID -Initiate warfarin -Follow up with Dr. Parsons in 1 month to discuss mcc plan HTN: -Normotensive -Continue losartan, amlodipine at home HLD: -Cont statin WILLOW: -Cont using CPAP Total time spent on discharge = 35 minutes This includes examination of the patient, discharge planning, medication reconciliation, and communication with other providers. Discharge Instructions DI: Medical v4 Discharge Instructions Date of Service Mar 26, 2017. Admission Reason for Admission: New Onset Atrial Fibrillation Discharge Discharge Diagnosis / Problem: New Onset Atrial Fibrillation Discharge Goals Goal(s): Decrease discomfort, Improve function, Increase independence, Improve disease control Activity Recommendations Activity Limitations: resume your previous activity . Instructions / Follow-Up Instructions / Follow-Up You were hospitalized for new onset atrial fibrillation. Your heart spontaneously converted back to normal sinus rhythm last night. You were seen by a figure clerk who started you on the following oral medications: -Metoprolol 50mg twice daily -Warfarin 5mg every day Your follow up appointment with Dr. Youngblood is WednesdayMarch 29 at 10: 45am. The cardiology office will arrange coag clinic referral and follow-up with Dr. Parsons. Current Hospital Diet Patient's current hospital diet: AHA Diet (Heart Healthy), Low Sodium Diet (2gm Na) Discharge Diet Recommended Diet: AHA Diet (Heart Healthy), Low Sodium Diet (2gm Na) Pending Studies Studies pending at discharge: no Medical Emergencies . Who to Call and When: Medical Emergencies: If at any time you feel your situation is an emergency, please call 911 immediately. . Non-Emergent Contact Non-Emergency issues call your: Primary Care Provider Call Non-Emergent contact if: you have any medication questions . Past History Medical & Surgical History: (1) New onset atrial fibrillation (2) HLD (hyperlipidemia) (3) Hx of pulmonary embolus (4) Factor V Leiden mutation (5) MTHFR mutation (6) HTN (hypertension) . "Provider Documentation" section prepared by Varsha Carr. . VTE Core Measure Inpt VTE Proph given/why not?: Unfractionated heparin [place] Drug Monitoring Program Search Results: patient reviewed within database Additional Copies To Jay Jay Youngblood MD
[2017-03-26 13:40] VITALS: BP 139/77; PULSE 78; TEMP 37.1; O2SAT 95
[2017-03-27] MEDS ORDERED: WARFARIN SOD 5 MG TAB PO SCH (16:00)
== END 2017-03-26 14:40 | disposition home or self-care (01) | DRG 308 ==
LOC: C.EDB 13:45 → C.2T 15:44 → ENRESERV 15:55
PROVIDERS: ADMIT Internal Medicine; ATTEND Family Medicine
DX: I48.0 Paroxysmal atrial fibrillation (principal); J18.9 Pneumonia, unspecified organism; D68.51 Activated protein C resistance; I10 Essential (primary) hypertension; E78.5 Hyperlipidemia, unspecified; G47.33 Obstructive sleep apnea (adult) (pediatric); Z86.711 Personal history of pulmonary embolism; Z79.1 Long term (current) use of non-steroidal anti-inflammatories (NSAID); Z79.82 Long term (current) use of aspirin; Z79.899 Other long term (current) drug therapy; Z83.3 Family history of diabetes mellitus